=== PATIENT | male | born 1980 | race Caucasian/White ===

== ENCOUNTER 2022-01-12 12:32 | Emergency (ER) | payer OTHER ==
[~2022-01-12] VITALS: Ht 182.9 cm; Wt 86.2 kg
[~2022-01-12 12:32] MED LIST: DIAZ5 PO; HYDACE5325 PO; IBUP800; IBUP800 PO; LORA1 PO; MECL12.5 PO; METPRE4DP PO
[2022-01-12] MEDS ORDERED: ERYT.5TO RIGHTEYE (13:40)
== END 2022-01-12 13:55 | disposition home or self-care (01) ==
LOC: ER 12:32
DX: S05.01XA Injury of conjunctiva and corneal abrasion without foreign body, right eye, initial encounter (principal); Z88.0 Allergy status to penicillin; X58.XXXA Exposure to other specified factors, initial encounter
CPT/HCPCS: 99283; A9270

== ENCOUNTER → 2022-04-05 | Outpatient (CLI) | payer OTHER ==
[~2022-04-05] MED LIST changes: +ERYT.5TO RIGHTEYE
== END | disposition home or self-care (01) ==
LOC: LAB 07:52 → PLD 07:52 → LAB SHORT 07:52
DX: L82.1 Other seborrheic keratosis (principal)
CPT/HCPCS: 88305